=== PATIENT | female | born 1950 | race Caucasian/White ===

== ENCOUNTER 2017-03-06 11:44 | Emergency (ER) | payer OTHER ==
[~2017-03-06] VITALS: Wt 73.0 kg
[~2017-03-06 11:44] MED LIST: ASPI-664; BENA10TA48; CYCL-319 PO; DOCU-144; GEMF600T; IBUP-1542 PO; METF500T4; OMEP20CA16; OXYB10TA; RANI300T3; SIMV20TA2
[2017-03-06] MEDS ORDERED: ONDANSETRON (ODT) 4 MG TAB ODT STA (13:02)
[2017-03-06 13:30] LABS: ADD SCAN DIFF NO
[2017-03-06] MEDS ORDERED: IBUPROFEN 800 MG TAB PO ONE (13:30)
[2017-03-06] MEDS ORDERED: HYDROCODONE/APAP (10/325) TAB PO ONE (13:30)
[2017-03-06 13:32] LABS: BASOPHIL # 0.1 10^3/ul (0.0-0.1); BASOPHILS % 1.3 % (0.0-2.0); EOSINOPHILS # 0.2 10^3/ul (0.0-0.5); EOSINOPHILS % 2.3 % (0.0-7.0); HEMATOCRIT 42.8 % (37.0-47.0); HEMOGLOBIN 13.7 g/dl (12.0-16.0); LYMPHOCYTES # 2.2 10^3/ul (0.8-2.9); MEAN CORPUSCULAR HEMOGLOBIN 29.3 pg (29.0-33.0); MEAN CORPUSCULAR VOLUME 91.5 fl (82.0-101.0); MONOCYTE # 0.5 10^3/ul (0.3-0.9); MONOCYTES % 6.7 % (0.0-11.0); NEUTROPHIL # 4.7 10^3/ul (1.6-7.5); NEUTROPHILS % 61.4 % (39.0-77.0); PLATELET COUNT 309 10^3/UL (140-415); RED BLOOD COUNT 4.68 10^6/ul (4.20-5.40); RED CELL DISTRIBUTION WIDTH 12.7 % (11.5-14.5); WHITE BLOOD COUNT 7.7 10^3/ul (4.8-10.8)
[2017-03-06 13:33] LABS: ADD UMIC YES; URINE BILIRUBIN (Dip) NEGATIVE (NEGATIVE); URINE BLOOD (Dip) NEGATIVE (NEGATIVE); URINE COLOR ORANGE (YELLOW); URINE GLUCOSE (Dip) NEGATIVE (NEGATIVE); URINE KETONES (Dip) NEGATIVE (NEGATIVE); URINE LEUKOCYTE ESTERASE (Dip) TRACE (NEGATIVE); URINE NITRITE (Dip) NEGATIVE (NEGATIVE); URINE TOTAL PROTEIN (Dip) NEGATIVE (NEGATIVE); URINE UROBILINOGEN (Dip) 0.2 E.U./dL (0.1-1.0)
[2017-03-06 13:47] LABS: MUCUS,URINE FEW; URINE RBCS NONE SEEN /HPF (0)
--- NOTE | 2017-03-06 13:50 | ERD ---
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 The patient describes at least 2 weeks of diffuse back pain left side is slightly greater than right sided but is somewhat similar to her chronic back pain. The patient states that she has lumbar disc disease. She denies any bowel or bladder incontinence. However over the last several days she notes suprapubic abdominal tenderness with dysuria urgency and frequency. No fevers or chills. She denies any motor weakness. No chest pain or shortness of breath. No colicky pain. ROS All systems reviewed and are negative except as per history of present illness. Medications Home Meds Active Scripts Ondansetron (Ondansetron Odt) 4 Mg Tab.rapdis, 4 MG PO Q6H Y for NAUSEA AND/OR VOMITING, #10 TAB Prov:RYAN TEMPLE MD 03/06/17 Hydrocodone/Acetaminophen ([place] 10-325 Tablet) 1 Each Tablet, 1 TAB PO Q6H Y for PAIN, #7 TAB Prov:RYAN TEMPLE MD 03/06/17 Nitrofurantoin Monohyd Macrocr* (Macrobid*) 100 Mg Capsr, 100 MG PO BID for 7 Days, CAP Prov:RYAN TEMPLE MD 03/06/17 Cyclobenzaprine Hcl* (Cyclobenzaprine Hcl*) 10 Mg Tablet, 10 MG PO TID, #15 TAB Prov:EILEEN RAINEY NP 05/20/16 Ibuprofen* (Motrin*) 600 Mg Tab, 600 MG PO Q6H Y for PAIN AND OR ELEVATED TEMP, #30 TAB Prov:EILEEN RAINEY NP 05/20/16 Reported Medications Ranitidine Hcl* (Zantac*) 300 Mg Tab 05/23/10 Docusate Sodium* (Colace*) 100 Mg Capsule 05/23/10 Simvastatin (Simvastatin) 20 Mg Tablet 05/23/10 Gemfibrozil* (Lopid*) 600 Mg Tablet 05/23/10 Benazepril Hcl* (Benazepril Hcl*) 10 Mg Tablet 05/23/10 Omeprazole* (Omeprazole*) 20 Mg Capsule. 05/23/10 Metformin Hcl* (Metformin Hcl*) 500 Mg Tablet 05/23/10 Aspirin* (Aspirin* EC) 81 Mg Tablet. 05/23/10 Oxybutynin Chloride* (Ditropan* XL) 10 Mg/Bottle Tab.osm.24 05/23/10 Allergies Allergies: Coded Allergies: iodine (Verified Allergy, Unknown, 05/21/16) niacin (Verified Allergy, Unknown, 05/21/16) PMhx/Soc History of Surgery: Yes (EYE SURGERY , ) Anesthesia Reaction: No Hx Neurological Disorder: No Hx Respiratory Disorders: No Hx Cardiac Disorders: Yes (HTN, HIGH CHOLESTEROL ) Hx Psychiatric Problems: No Hx Miscellaneous Medical Probl: No Hx Alcohol Use: No Hx Substance Use: No Hx Tobacco Use: No FmHx Family History: No diabetes Physical Exam Vitals Vital Signs Date Time Temp Pulse Resp B/P Pulse Ox O2 Delivery O2 Flow Rate FiO2 03/06/17 11:49 98.4 86 18 133/70 98 Physical Exam General: Well developed, well nourished, no acute distress Head: Normocephalic, atraumatic. Eyes: Pupils equally reactive, EOM intact ENT: Moist mucous membranes Neck: Supple, no lymphadenopathy Respiratory: Lungs clear bilaterally, no distress Cardiovascular: RRR, no murmurs, rubs, or gallops Abdominal: Soft, mild suprapubic tenderness without rebound or guarding, no peritonitis no tenderness to McBurney's point Back: Inconsistent CVA tenderness bilaterally left greater than right : Deferred MSK: No edema, no unilateral swelling, 5/5 strength Neurologic: Alert and oriented, moving all extremities, normal speech, no focal weakness, no cerebellar signs Skin: No rash Psych: Normal mood Result Diagram: 03/06/17 1320 03/06/17 1320 Results 24 hrs Laboratory Tests Test 03/06/17 13:20 White Blood Count 7.710^3/ul Red Blood Count 4.6810^6/ul Hemoglobin 13.7g/dl Hematocrit 42.8% Mean Corpuscular Volume 91.5fl Mean Corpuscular Hemoglobin 29.3pg Mean Corpuscular Hemoglobin Concent 32.0g/dl Red Cell Distribution Width 12.7% Platelet Count 27071^3/UL Mean Platelet Volume 10.0fl Neutrophils % 61.4% Lymphocytes % 28.0% Monocytes % 6.7% Eosinophils % 2.3% Basophils % 1.3% Nucleated Red Blood Cells % 0.0/100WBC Neutrophils # 4.710^3/ul Lymphocytes # 2.210^3/ul Monocytes # 0.510^3/ul Eosinophils # 0.210^3/ul Basophils # 0.110^3/ul Nucleated Red Blood Cells # 0.010^3/ul Urine Color ORANGE Urine Clarity CLEAR Urine pH 5.5 Urine Specific [place] >=1.030 Urine Ketones NEGATIVE Urine Nitrite NEGATIVE Urine Bilirubin NEGATIVE Urine Urobilinogen 0.2 E.U./dL Urine Leukocyte Esterase TRACE Urine Microscopic RBC NONE SEEN/HPF Urine Microscopic WBC 0-2/HPF Urine Mucus FEW Urine Hemoglobin NEGATIVE Urine Glucose NEGATIVE% Urine Total Protein NEGATIVE Sodium Level 142mmol/L Potassium Level 4.0mmol/L Chloride Level 101mmol/L Carbon Dioxide Level 29mmol/L Anion Gap 16 Blood Urea Nitrogen 19mg/dl Creatinine 0.63mg/dl Glucose Level 104mg/dl Calcium Level 9.7mg/dl Lipase 73U/L Current Medications Medications (Trade) Dose Ordered Sig/Yomi Route PRN Reason Start Time Stop Time Status Last Admin Dose Admin Acetaminophen/ Hydrocodone Bitart ([place] (10/325)) 1 tab ONCE ONCE PO 03/06/17 13:30 03/06/17 13:31 DC 03/06/17 13:15 Ondansetron HCl (Zofran Odt) 4 mg ONCE STAT ODT 03/06/17 13:02 03/06/17 13:06 DC 03/06/17 13:14 Ibuprofen (Motrin) 800 mg ONCE ONCE PO 03/06/17 13:30 03/06/17 13:31 DC 03/06/17 13:23 Procedures/MDM EKG, MONITORS, & DIAGNOSTIC IMAGING: CT abdomen and pelvis IMPRESSION: 1. 2 mm nonobstructing mid to inferior left renal calculus. No other urinary calcified calculi. No obstructive uropathy. 2. A definite appendix is not visualized. No CT evidence of appendicitis or diverticulitis. 3. Small hiatal hernia. 4. No evidence of intra-abdominal free air fluid abscesses or lymphadenopathy. RPTAT:AAJJ LAB INTERPRETATION: No leukocytosis MEDICAL DECISION MAKING: The patient presents with back pain and suprapubic abdominal pain with dysuria urgency and frequency. The patient's presentation could be consistent with early pyelonephritis versus acute cystitis. The patient does not have a fever and has normal vital signs. I do not suspect acute aortic process such as aneurysm or dissection. The patient has chronic back pain and her back pain may be exacerbated at this point but no evidence of cauda equina or cord compression. The patient's low back pain is unlikely related to serious etiology. The patient exhibits no clinical signs or symptoms and has no history or risk factors to suggest cauda equina, cord compression, epidural abscess, epidural hematoma, acute aortic aneurysm or dissection. Given the patient's age I will check basic blood work. Low threshold for CT imaging of the abdomen and pelvis given the patient's age, consider possible kidney stone. Mass. Given 2 weeks of symptoms. ER COURSE: The patient has no significant leukocytosis. Urinalysis is pending. Patient still has mild symptoms therefore CT imaging of the abdomen and pelvis has been ordered. The patient's laboratory testing and CT imaging are otherwise unremarkable. At this time I believe the patient's back pain is more consistent with likely acute on chronic lumbar radiculopathy without evidence of cauda equina or cord compression. The patient may have a bladder infection however her urinalysis is not reflective of this. I believe it would be reasonable to try the patient on a short course of antibiotics to see if this improves her bladder discomfort dysuria urgency and frequency. However if symptoms continue given the patient' s age outpatient follow-up with urology for possible cystoscopy would be most appropriate. The patient was given these instructions and states understanding. I kept the patient and/or family informed of laboratory and diagnostic imaging results throughout the emergency room course. DISPOSITION PLAN: We discussed follow up with the patient's primary care doctor within 24 to 48 hours as needed. We also discussed return to the emergency room for worsening symptoms or worsening condition. Outpatient referral: None required Discharge Medications: [place], Zofran, Macrobid Departure Diagnosis: Primary Impression: UTI (urinary tract infection) Urinary tract infection type: site unspecified Hematuria presence: without hematuria Qualified Code: N39.0 - Urinary tract infection without hematuria, site unspecified Additional Impression: Chronic back pain Back pain location: low back pain Back pain laterality: bilateral Sciatica presence: without sciatica Qualified Code: M54.5 - Chronic bilateral low back pain without sciatica Condition: Stable RYAN TEMPLE MD March 06, 2017 13:50
[2017-03-06 13:54] LABS: CREATININE 0.63 mg/dl (0.44-1.00)
[2017-03-06 13:55] LABS: CALCIUM 9.7 mg/dl (8.4-10.2)
[2017-03-06] MEDS ORDERED: NITR-58 PO (14:31)
[2017-03-06] MEDS ORDERED: ONDA4TAB14 PO (14:31)
[2017-03-06] MEDS ORDERED: HYDR-902 PO (14:31)
--- NOTE | 2017-03-06 14:46 | RADRPT ---
PROCEDURE: CT Abdomen and pelvis without contrast. CLINICAL INDICATION: abd and back pain, dysuria TECHNIQUE: CT scan of the abdomen and pelvis without contrast was performed on a multidetector hig h-resolution CT scan. . Coronal and sagittal reformatted images were obtained from the [facility]. Standard CT scan of the abdomen pelvis without contrast protocols were performed. The total exam CTDI equals 11.81 mGy and the total exam DLP equals 702.45 mGy-cm. One or more of the following dose reduction techniques were used: - Automated exposure control. - Adjustment of the mA and/or kV according to patient size. Use of iterative reconstruction technique. COMPARISON: None. FINDINGS: The kidneys are normal in size with a 2 mm non-obstructing left mid to inferior renal calculus. No other renal calcified calculi or hydronephrosis bilaterally. No evidence of intra renal masses bila terally. The ureters are unremarkable. The urinary bladder is contracted but otherwise unremarkabl e. The uterus is anteverted and anteflexed and is otherwise unremarkable. No adnexal masses. A definite appendix is not visualized and there is no CT evidence of appendicitis. There is a small hiatal hernia with the stomach otherwise unremarkable. The small large bowel are unremarkable. Negative for intra-abdominal free air, free fluid, abscesses or lymphadenopathy. The liver spleen pancreas adrenal glands and gallbladder are unremarkable. No evidence biliary duct al dilation. The aorta is unremarkable. The abdominal and pelvic wall is unremarkable. The lung bases are unrem arkable. There is a moderate dextrorotoscoliosis of the lumbar spine. There is extensive degenerat benoit changes lower thoracic and lumbar spine. There are no acute osseous findings are osteoblastic/o steolytic lesions. IMPRESSION: 1. 2 mm nonobstructing mid to inferior left renal calculus. No other urinary calcified calculi. N o obstructive uropathy. 2. A definite appendix is not visualized. No CT evidence of appendicitis or diverticulitis. 3. Small hiatal hernia. 4. No evidence of intra-abdominal free air fluid abscesses or lymphadenopathy. RPTAT:AAJJ Physician Marlen Date Time Electronically viewed and signed by Physician Marlen on 03/06/2017 14:45 BM/
== END 2017-03-06 15:00 | disposition home or self-care (01) ==
LOC: FTE 11:44
DX: N39.0 Urinary tract infection, site not specified (principal); M54.5 Low back pain; I10 Essential (primary) hypertension; Z79.82 Long term (current) use of aspirin
CPT/HCPCS: 36415; 74176; 80048; 81001; 83690; 85025; 87086; Z7502; Z7610

== ENCOUNTER 2018-02-09 18:06 | Emergency (ER) | END 2018-02-10 01:55 | disposition home or self-care (01) ==